=== PATIENT | male | born 1995 | race Caucasian/White ===

== ENCOUNTER 2018-10-12 18:35 | Emergency (ER) | payer OTHER ==
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
[2018-10-12 20:17] VITALS: BP 128/66
== END 2018-10-12 20:12 | disposition home or self-care (01) ==
LOC: ER 18:35
DX: M54.6 Pain in thoracic spine (principal); R51 Headache; V43.52XA Car driver injured in collision with other type car in traffic accident, initial encounter
CPT/HCPCS: 99283